=== PATIENT | male | born 1990 | race Caucasian/White ===

== ENCOUNTER → 2019-12-12 | Outpatient (CLI) | payer OTHER ==
[2019-12-10 15:55] VITALS: BP 109/63
[~2019-12-12] MED LIST: SEROQUEL50 MG PO; SERTRALINE HYD100 MG PO
== END ==
LOC: RAD 07:49
DX: N28.1 Cyst of kidney, acquired (principal); R91.1 Solitary pulmonary nodule; R59.0 Localized enlarged lymph nodes; R05 Cough
CPT/HCPCS: Q9967

== ENCOUNTER → 2020-01-22 | Outpatient (CLI) | payer OTHER ==
[2019-12-10 15:55] VITALS: BP 109/63
== END ==
LOC: RAD 07:54
DX: D86.9 Sarcoidosis, unspecified (principal); I77.6 Arteritis, unspecified; R91.8 Other nonspecific abnormal finding of lung field; R59.0 Localized enlarged lymph nodes
CPT/HCPCS: Q9967

== ENCOUNTER → 2020-06-10 | Outpatient (CLI) | payer OTHER ==
[2019-12-10 15:55] VITALS: BP 109/63
== END ==
LOC: RAD 07:24
DX: N28.1 Cyst of kidney, acquired (principal)

== ENCOUNTER 2023-12-19 18:17 | Emergency (ER) | payer OTHER ==
[~2023-12-19] VITALS: Ht 182.9 cm; Wt 104.5 kg
[2023-12-19 19:25] VITALS: BP 112/71
== END 2023-12-19 19:20 | disposition home or self-care (01) ==
LOC: ED 18:17
DX: S61.211A Laceration without foreign body of left index finger without damage to nail, initial encounter (principal); W27.0XXA Contact with workbench tool, initial encounter

== ENCOUNTER 2023-12-25 13:00 | Emergency (ER) | payer OTHER ==
[~2023-12-25] VITALS: Ht 182.9 cm; Wt 104.3 kg
[2023-12-25] MEDS ORDERED: LAMICTAL 100MG100 MG PO (13:48)
[2023-12-25 14:45] VITALS: BP 118/80
== END 2023-12-25 14:57 | disposition home or self-care (01) ==
LOC: ED 13:00
DX: S05.01XA Injury of conjunctiva and corneal abrasion without foreign body, right eye, initial encounter (principal); X58.XXXA Exposure to other specified factors, initial encounter